=== PATIENT | male | born 2005 | race Caucasian/White ===

== ENCOUNTER 2024-09-24 02:42 | Day surgery (SDC) | payer BC, SELFPAY ==
[2024-09-13 14:46] VITALS: BMI 21.5
[2024-09-24 11:16] VITALS: BP 102/72; PULSE 74; RESP 16; TEMP 36.3; O2SAT 100
[2024-09-24] MEDS: LACTATED RINGERS 1,000 ML 150 ML IV CONT (11:25)
--- NOTE | 2024-09-24 12:14 | PM.HPGS ---
History of Present Illness History of Present Illness Consent: Risks, benefits, and alternatives have been discussed and questions answered. Patient agrees to proceed with procedure. Chief complaint: GERD Narrative: Thuan Shore is a 19 year old male with gerd but lately more nausea after eating and can not complete full meal, never had egd, omeprazole did not help much. Review of Systems Review of Systems: All systems reviewed & are unremarkable except as noted in HPI and below PMFSH Past Medical History Medical History Eczema GERD (gastroesophageal reflux disease) Rash Surgical History Surgical History History of placement of ear tubes Family History Family History Mother Hypertension Grandparent Pancreatic cancer Hypertension Heart disease Grandparent Asthma Hypertension Social History Social History Smoking status: Never smoker Alcohol intake: never Substance use: never Substance use type: does not use Living arrangements: alone Occupation/Education: student Spiritual care concerns: No Meds Home Medications and Allergies Home Medications ?Medication ?Instructions ?Recorded ?Confirmed ?Type omeprazole 20 mg tablet,delayed 20 mg PO DAILY 05/03/24 09/24/24 History release Allergies Allergy/AdvReac Type Severity Reaction Status Date / Time No Known Allergies Allergy Unknown Verified 09/24/24 11:12 Vital Signs Vital Signs - 24 hr 09/24/24 11:16 Temperature 97.3 F L Pulse Rate 74 Respiratory Rate 16 Blood Pressure 102/72 Pulse Oximetry 100 Oxygen Delivery Room Air Exam Const: General: comfortable and no acute distress HENMT: Face/Nose/Sinus: Normal nares present Eyes: General: appearance normal, both eyes and all related structures Neck: Neck: no JVD Resp: Auscultation: clear to auscultation bilaterally Cardio: Rate: regular rate Rhythm: regular rhythm GI: Inspection: non-distended GI Palp: Yes Soft to palpation Skin: General skin exam: normal color Neuro: General: gait normal Speech: normal speech Extrem: General: normal to inspection Psych: Mental Status: mental status grossly normal Assessment and Plan Assessment and plan (1) GERD (gastroesophageal reflux disease): Code(s): K21.9 - Gastro-esophageal reflux disease without esophagitis Status: Acute Assessment and Plan: egd with bx
--- NOTE | 2024-09-24 12:15 | P.PNAN_ITS ---
Anes - Initial Pre Proc Eval Procedure: Operation Date: 09/24/24 12:30 Proposed Procedures p Esophagogastroduodenoscopy - Adam Noonan MD Date/Time: 09/24/24 12:15 Surgeon: Adam Noonan MD Pre Op Diagnosis: GERD Patient Data Age: 19 Gender: M Height: 1.78 m Weight: 63.7 kg Last Vital Signs Temp 36.3 C L 09/24/24 11:16 Pulse 74 09/24/24 11:16 Resp 16 09/24/24 11:16 BP 102/72 09/24/24 11:16 Pulse Ox 100 09/24/24 11:16 O2 Del Method Room Air 09/24/24 11:16 Allergies Allergy/AdvReac Type Severity Reaction Status Date / Time No Known Allergies Allergy Unknown Verified 09/24/24 11:12 Home Medications ?Medication ?Instructions ?Recorded ?Confirmed ?Type omeprazole 20 mg tablet,delayed 20 mg PO DAILY 05/03/24 09/24/24 History release Patient hx anesthesia problems: none Family hx anesthesia problems: none Results Review: All pre-operative results and documents have been reviewed as part of the pre- operative evaluation. [facility] Past Medical History Medical History GERD (gastroesophageal reflux disease) Rash Eczema Surgical History Surgical History History of placement of ear tubes Family History Family History Mother Hypertension Grandparent Pancreatic cancer Hypertension Heart disease Grandparent Asthma Hypertension Social History Social History Smoking status: Never smoker Alcohol intake: never Substance use: never Substance use type: does not use Living arrangements: alone Occupation/Education: student Spiritual care concerns: No Anes - Eval Final PreProcedure Day of Procedure 09/24/24 12:15 Patient weight: normal Heart: regular rate and rhythm Lungs: clear to auscultation Airway: Mallampati scale class 1 Neurological: alert and oriented Last oral intake: >/= 8 hours ASA classification: II Emergent: no Anesthetic plan: proceed Anesthesia type and monitoring: general GIVS Results Review: All pre-operative results and documents have been reviewed as part of the pre-operative evaluation. Informed Consent: The patient's anesthetic plan and its attendant risks and benefits were discussed with the patient/family/POA. Questions were solicited and answers provided to the satisfaction of the patient/family/POA.
[2024-09-24 12:28] VITALS: BP 111/71; PULSE 73; RESP 18; O2SAT 97
[2024-09-24 12:38] VITALS: BP 107/68; PULSE 64; RESP 20; O2SAT 98
[2024-09-24 12:48] VITALS: BP 114/76; PULSE 69; RESP 20; O2SAT 98
== END 2024-09-24 13:00 | disposition home or self-care (01) ==
PROVIDERS: PCP Physician Assistant Medical; Visit Provider Internal Medicine Gastroenterology
PROC: 0DJ08ZZ Inspection of Upper Intestinal Tract, Via Natural or Artificial Opening Endoscopic (ICD-10-PCS; CPT 43235; principal; 2024-09-24 12:30)
DX: K21.00 Gastro-esophageal reflux disease with esophagitis, without bleeding (principal); K29.50 Unspecified chronic gastritis without bleeding
CPT/HCPCS: 43239; 88305; J2704; J7120